=== PATIENT | male | born 1970 | race Caucasian/White ===

== ENCOUNTER 2020-12-18 09:02 | Outpatient (REF) | payer BC, SELFPAY ==
[2020-12-18 11:30] LABS: Estimated Average Glucose 174 mg/dL; Hemoglobin A1c % 7.7 %
[2020-12-18 12:02] LABS: Alanine Aminotransferase 43 U/L (0-40); Albumin Level 4.6 g/dL (3.5-5.0); Alkaline Phosphatase 70 U/L (39-117); Anion Gap 15 (12-20); Aspartate Amino Transferase 17 U/L (5-37); Bilirubin Total 0.8 mg/dL (0.0-1.0); Blood Urea Nitrogen 17 mg/dL (9-16); Calcium 9.2 mg/dL (8.4-10.2); Carbon Dioxide 28 mmol/L (22-29); Chloride 95 mmol/L (96-108); Estimated Glomerular Filt Rate > 60; Glucose Fasting 197 mg/dL (60-99); Potassium 4.8 mmol/L (3.3-5.1); Sodium 133 mmol/L (135-145); Total Protein 7.4 g/dL (6.5-8.0)
== END 2020-12-18 09:03 | disposition home or self-care (01) ==
LOC: HO.MANLDS 09:02
PROVIDERS: PCP Internal Medicine; Visit Provider Internal Medicine
DX: E11.65 Type 2 diabetes mellitus with hyperglycemia (principal)
CPT/HCPCS: 36415; 80053; 83036

== ENCOUNTER 2021-05-04 07:52 | Outpatient (REF) | payer BC, SELFPAY ==
[2021-05-04 11:34] LABS: Estimated Average Glucose 169 mg/dL; Hemoglobin A1c % 7.5 %
== END 2021-05-04 07:53 | disposition home or self-care (01) ==
LOC: HO.MANLDS 07:52
PROVIDERS: PCP Internal Medicine; Visit Provider Internal Medicine
DX: E11.65 Type 2 diabetes mellitus with hyperglycemia (principal)
CPT/HCPCS: 36415; 83036

== ENCOUNTER 2021-08-10 08:00 | Outpatient (REF) | payer BC, SELFPAY ==
[2021-08-10 11:29] LABS: Estimated Average Glucose 174 mg/dL; Hemoglobin A1c % 7.7 %
== END 2021-08-10 08:01 | disposition home or self-care (01) ==
LOC: HO.MANLDS 08:00
PROVIDERS: PCP Internal Medicine; Visit Provider Internal Medicine
DX: E11.65 Type 2 diabetes mellitus with hyperglycemia (principal)
CPT/HCPCS: 36415; 83036

== ENCOUNTER 2021-12-03 08:20 | Outpatient (REF) | payer BC, SELFPAY ==
[2021-12-03 11:25] LABS: Alanine Aminotransferase 62 U/L (0-40); Albumin Level 4.3 g/dL (3.5-5.0); Alkaline Phosphatase 80 U/L (39-117); Anion Gap 11 (12-20); Aspartate Amino Transferase 27 U/L (5-37); Bilirubin Total 0.6 mg/dL (0.0-1.0); Blood Urea Nitrogen 12 mg/dL (9-16); Calcium 9.6 mg/dL (8.4-10.2); Carbon Dioxide 31 mmol/L (22-29); Chloride 98 mmol/L (96-108); Cholesterol 168 mg/dL; Estimated Glomerular Filt Rate > 60; Glucose Fasting 254 mg/dL (60-99); HDL Cholesterol 37 mg/dL; LDL Cholesterol Calculated 103 mg/dl; Potassium 4.8 mmol/L (3.3-5.1); Sodium 135 mmol/L (135-145); Total Protein 7.1 g/dL (6.5-8.0); Triglycerides 140 mg/dL
[2021-12-03 11:33] LABS: Estimated Average Glucose 194 mg/dL; Hemoglobin A1c % 8.4 %
[2021-12-03 11:46] LABS: Creatinine Urine 92.07 mg/dL; Microalbum/Creatinine Ratio Ur 10.8 ug/mg cr
[2021-12-03 11:59] LABS: Prostate Specific Antigen 0.27 ng/mL (<0.05-4.0)
== END 2021-12-03 08:21 | disposition home or self-care (01) ==
LOC: HO.MANLDS 08:20
PROVIDERS: PCP Internal Medicine; Visit Provider Internal Medicine
DX: E11.65 Type 2 diabetes mellitus with hyperglycemia (principal); Z12.5 Encounter for screening for malignant neoplasm of prostate
CPT/HCPCS: 36415; 80053; 80061; 82043; 83036; 84153

== ENCOUNTER 2022-02-22 09:34 | Outpatient (REF) | payer BC, SELFPAY ==
[2022-02-22 11:23] LABS: Estimated Average Glucose 217 mg/dL; Hemoglobin A1c % 9.2 %
== END 2022-02-22 09:35 | disposition home or self-care (01) ==
LOC: HO.MANLDS 09:34
PROVIDERS: PCP Internal Medicine; Visit Provider Internal Medicine
DX: E11.65 Type 2 diabetes mellitus with hyperglycemia (principal)
CPT/HCPCS: 36415; 83036

== ENCOUNTER 2023-02-04 09:50 | Outpatient (REF) | payer BC, SELFPAY ==
[2023-02-04 11:41] LABS: Estimated Average Glucose 197 mg/dL; Hemoglobin A1c % 8.5 %
[2023-02-04 12:32] LABS: Creatinine Urine 82.64 mg/dL; Microalbum/Creatinine Ratio Ur 20.5 ug/mg cr
[2023-02-04 12:33] LABS: Alanine Aminotransferase 51 U/L (0-40); Albumin Level 4.4 g/dL (3.5-5.0); Alkaline Phosphatase 76 U/L (39-117); Anion Gap 11 (12-20); Aspartate Amino Transferase 26 U/L (5-37); Bilirubin Total 0.7 mg/dL (0.0-1.0); Blood Urea Nitrogen 12 mg/dL (9-16); Calcium 9.6 mg/dL (8.4-10.2); Carbon Dioxide 32 mmol/L (22-29); Chloride 100 mmol/L (96-108); Cholesterol 162 mg/dL; Estimated Glomerular Filt Rate > 60; Glucose Random 194 mg/dL (60-115); HDL Cholesterol 38 mg/dL; LDL Cholesterol Calculated 98 mg/dl; Potassium 5.2 mmol/L (3.3-5.1); Sodium 138 mmol/L (135-145); Triglycerides 132 mg/dL
== END 2023-02-04 09:51 | disposition home or self-care (01) ==
LOC: HO.MANLDS 09:50
PROVIDERS: Visit Provider Internal Medicine
DX: E11.65 Type 2 diabetes mellitus with hyperglycemia (principal)
CPT/HCPCS: 36415; 80053; 80061; 82043; 83036

== ENCOUNTER 2023-05-28 08:44 | Outpatient (REF) | payer BC, SELFPAY ==
[2023-05-28 14:00] LABS: Alanine Aminotransferase 58 U/L (0-40); Albumin Level 4.3 g/dL (3.5-5.0); Alkaline Phosphatase 73 U/L (39-117); Anion Gap 14 (12-20); Aspartate Amino Transferase 33 U/L (5-37); Bilirubin Total 0.7 mg/dL (0.0-1.0); Blood Urea Nitrogen 13 mg/dL (9-16); Calcium 9.5 mg/dL (8.4-10.2); Carbon Dioxide 27 mmol/L (22-29); Chloride 101 mmol/L (96-108); Cholesterol 156 mg/dL (<200); Estimated Glomerular Filt Rate > 60; Glucose Random 255 mg/dL (60-115); HDL Cholesterol 37 mg/dL (>40); LDL Cholesterol Calculated 91 mg/dL (<100); Potassium 4.7 mmol/L (3.3-5.1); Sodium 137 mmol/L (135-145); Total Protein 7.2 g/dL (6.5-8.0); Triglycerides 141 mg/dL (<150)
[2023-05-28 14:16] LABS: Estimated Average Glucose 200 mg/dL; Hemoglobin A1c % 8.6 % (<6.0)
== END 2023-05-28 08:45 | disposition home or self-care (01) ==
LOC: HO.MANLDS 08:44
PROVIDERS: Visit Provider Internal Medicine
DX: E11.65 Type 2 diabetes mellitus with hyperglycemia (principal)
CPT/HCPCS: 36415; 80053; 80061; 83036

== ENCOUNTER 2023-09-05 08:05 | Outpatient (REF) | payer BC, SELFPAY ==
[2023-09-05 14:32] LABS: Alanine Aminotransferase 43 U/L (0-40); Albumin Level 4.2 g/dL (3.5-5.0); Alkaline Phosphatase 75 U/L (39-117); Anion Gap 13 (12-20); Aspartate Amino Transferase 29 U/L (5-37); Bilirubin Total 0.6 mg/dL (0.0-1.0); Blood Urea Nitrogen 13 mg/dL (9-16); Calcium 9.4 mg/dL (8.4-10.2); Carbon Dioxide 28 mmol/L (22-29); Chloride 101 mmol/L (96-108); Cholesterol 169 mg/dL (<200); Estimated Glomerular Filt Rate > 60; Glucose Random 210 mg/dL (60-115); HDL Cholesterol 35 mg/dL (>40); LDL Cholesterol Calculated 98 mg/dL (<100); Potassium 4.4 mmol/L (3.3-5.1); Sodium 138 mmol/L (135-145); Total Protein 7.3 g/dL (6.5-8.0); Triglycerides 183 mg/dL (<150)
[2023-09-05 14:38] LABS: Estimated Average Glucose 200 mg/dL; Hemoglobin A1c % 8.6 % (<6.0)
[2023-09-05 14:45] LABS: Creatinine Urine 36.38 mg/dL; Microalbumin Urine < 5.0 mg/L
== END 2023-09-05 08:06 | disposition home or self-care (01) ==
LOC: HO.MANLDS 08:05
PROVIDERS: Visit Provider Internal Medicine
DX: E11.65 Type 2 diabetes mellitus with hyperglycemia (principal)
CPT/HCPCS: 36415; 80053; 80061; 82043; 82570; 83036

== ENCOUNTER 2023-10-31 07:48 | Outpatient (REF) | payer BC, SELFPAY ==
[2023-10-31 13:36] LABS: Estimated Average Glucose 174 mg/dL; Hemoglobin A1c % 7.7 % (<6.0)
== END 2023-10-31 07:49 | disposition home or self-care (01) ==
LOC: HO.MANLDS 07:48
PROVIDERS: Visit Provider Internal Medicine
DX: E11.65 Type 2 diabetes mellitus with hyperglycemia (principal)
CPT/HCPCS: 36415; 83036

== ENCOUNTER 2024-03-22 09:07 | Outpatient (REF) | payer BC, SELFPAY ==
[2024-03-22 13:52] LABS: Estimated Average Glucose 171 mg/dL; Hemoglobin A1c % 7.6 % (<6.0)
[2024-03-22 14:06] LABS: Alanine Aminotransferase 20 U/L (0-40); Albumin Level 4.2 g/dL (3.5-5.0); Alkaline Phosphatase 76 U/L (39-117); Anion Gap 16 (12-20); Aspartate Amino Transferase 15 U/L (5-37); Bilirubin Total 0.5 mg/dL (0.0-1.0); Blood Urea Nitrogen 17 mg/dL (9-16); Carbon Dioxide 25 mmol/L (22-29); Chloride 101 mmol/L (96-108); Estimated Glomerular Filt Rate > 60; Glucose Random 169 mg/dL (60-115); Potassium 4.6 mmol/L (3.3-5.1); Sodium 137 mmol/L (135-145); Total Protein 7.1 g/dL (6.5-8.0)
== END 2024-03-22 09:08 | disposition home or self-care (01) ==
LOC: HO.MANLDS 09:07
PROVIDERS: Visit Provider Internal Medicine
DX: E11.65 Type 2 diabetes mellitus with hyperglycemia (principal)
CPT/HCPCS: 36415; 80053; 83036

== ENCOUNTER 2024-08-31 13:44 | Outpatient (REF) | payer BC, SELFPAY ==
[2024-08-31 15:32] LABS: Albumin Level 4.4 g/dL (3.5-5.0); Anion Gap 17 (12-20); Aspartate Amino Transferase 54 U/L (5-37); Bilirubin Total 0.3 mg/dL (0.0-1.0); Blood Urea Nitrogen 12 mg/dL (9-16); Calcium 9.7 mg/dL (8.4-10.2); Carbon Dioxide 25 mmol/L (22-29); Chloride 96 mmol/L (96-108); Estimated Glomerular Filt Rate > 60; Glucose Random 152 mg/dL (60-115); Potassium 4.1 mmol/L (3.3-5.1); Sodium 134 mmol/L (135-145); Total Protein 7.8 g/dL (6.5-8.0)
[2024-08-31 15:41] LABS: Estimated Average Glucose 183 mg/dL; Hemoglobin A1C 243.5774 umol/L
[2024-08-31 16:08] LABS: Alanine Aminotransferase 41 U/L (0-40); Alkaline Phosphatase 127 U/L (39-117)
== END 2024-08-31 13:45 | disposition home or self-care (01) ==
LOC: HO.MANLNP 13:44
PROVIDERS: Visit Provider Internal Medicine
DX: E11.65 Type 2 diabetes mellitus with hyperglycemia (principal)
CPT/HCPCS: 36415; 80053; 83036

== ENCOUNTER 2024-12-24 07:37 | Outpatient (REF) | payer BC, SELFPAY ==
[2024-12-24 13:49] LABS: Estimated Average Glucose 189 mg/dL; Hemoglobin A1c % 8.2 % (<6.0)
[2024-12-24 14:10] LABS: Alanine Aminotransferase 55 U/L (0-40); Albumin Level 4.2 g/dL (3.5-5.0); Alkaline Phosphatase 81 U/L (39-117); Anion Gap 13 (12-20); Bilirubin Total 0.4 mg/dL (0.0-1.0); Blood Urea Nitrogen 14 mg/dL (9-16); Calcium 9.7 mg/dL (8.4-10.2); Carbon Dioxide 26 mmol/L (22-29); Chloride 103 mmol/L (96-108); Cholesterol 163 mg/dL (<200); Estimated Glomerular Filt Rate > 60; Glucose Random 208 mg/dL (60-115); HDL Cholesterol 37 mg/dL (>40); LDL Cholesterol Calculated 80 mg/dL (<100); Potassium 4.7 mmol/L (3.3-5.1); Sodium 137 mmol/L (135-145); Total Protein 7.6 g/dL (6.5-8.0); Triglycerides 233 mg/dL (<150)
[2024-12-24 14:22] LABS: Aspartate Amino Transferase 31 U/L (5-37)
[2024-12-27 04:19] LABS: HBS Num1 22.32 mIU/mL (0-7.99); ~Hepatitis B Surface Antibody REACTIVE (Nonreactive)
[2024-12-28 02:34] LABS: Mumps Virus IgG Antibody <9.00 AU/mL; Rubella IgG Antibody 1.28 Index
== END 2024-12-24 07:38 | disposition home or self-care (01) ==
LOC: HO.MANLDS 07:37
PROVIDERS: Visit Provider Internal Medicine
DX: Z91.89 Other specified personal risk factors, not elsewhere classified (principal); E11.65 Type 2 diabetes mellitus with hyperglycemia
CPT/HCPCS: 36415; 80053; 80061; 83036; 86706; 86735; 86762; 86765

== ENCOUNTER 2025-07-27 09:46 | Outpatient (REF) | payer BC, SELFPAY ==
--- OUTSIDE RECORDS SUMMARY | 2024-12-27 05:00 | XMS_ITS ---
Author Organization [facility] Address [address] [place] [address] Care Team Providers Care Director Client Name Role Phone Freddy MARTINEZ, Robinson Primary Care Provider UnavailGurvinder James Unavailable [phone] Encounters Encounter Location Date Provider Diagnosis [address] [id number] 12/27/2024 Gurvinder Beyer Plan Of Treatment Next Appt Details Provider Name:Gurvinder Beyer , 12/12/2025 08:30:00 AM, [facility] [address], [id number], Progress Notes * Tj CARTAGENA MDOB:1970 (54 yo M)Acc No.[id number]:12/27/2024 Progress Note Patient: Tj DEL TORO Provider: Rufus Beyer DPM :1970 A ge:54 Y S ex:Male Date:12/27/2024 Address:[address] [place] [id number] Pcp:Robinson Hayes MD Subjective: * Chief Complaints: * * Medical History: Objective: * Vitals: Assessment: Plan: * Treatment: * Images: * The named appointment provid er may or may not be the originator of this progress note, and it is not deemed complete until electronically signed by the appointment provider. Sign off status: Pending * Provider: Rufus Beyer DPM Date: 0 12/27/2024 Generated for Printi joan/Lety/eTransmitting on: 1 11:31 AM EDT
--- OUTSIDE RECORDS SUMMARY | 2025-07-27 11:31 | XMS_ITS | Encounter Summary ---
Author Organization [facility] Address [address] [place], [place] [id number] Phone Care Team Providers Care Oxyacetylene Torch Operator Name Role Phone Robinson Hayes DO Primary Care Provider [phone] Reason for Referral * MRI/CAT Scan - Closed Specialty Diagnoses / Procedures Referred By Braden bañuelos Referred To Contact Radiology Diagnoses Other specified diabetes mellitus with foot ulcer, unspecified whether manager long term care insulin use Procedures MRI Toe (Right) Robinson Hayes DO Phone: tel: fax: [email or web address] Referral ID Status Reason Start Date Expiration Date Visits Re quested Visits Authorized [id number] Closed 01/06/2020 01/05/2021 1 1 Encounter Details Date Type Department Care Team (Late st Contact Info) Description 01/06/2020 Transcribe Orders Virtual Department [address] [place] [address] Robinson Hayes DO [address] [facility] [place] [address] [email or web address] Other specified diabetes mellitus with foot ulcer, unspecified whether [facility] insulin use (Primary Dx) Social History Tobacco Use Types Packs/Day Years Used Date Smoking Tobacco: Never Assessed Sex and Gender Information Value Date Recorded Sex Assigned at Not on file Legal Sex Male 9:34 PM EDT Gender Identity Not on file Sexual Orientation Not on file documented as of this encounter Plan of Treatment Not on file documented as of this encounter Results * XR FOOT 3 OR MORE VIEWS (RIGHT) (01/12/2020 4:04 PM EDT) Anatomical Region Laterality Modality Foot Right Radiographic Sandra ging 01/12/2020 4:10 PM EDT Impressions 01/12/2020 4:16 PM EDT Although findings on MRI are compatible with osteomyelitis involving the distal phalanx of the first digit in the correct clinical setting, there is no radiographic evidence of osteomyelitis. Clinical follow-up recommended. Approximate 1 cm lesion within the base of the middle phalanx of the first digit is very likely benign and probably a cyst. POS - [id number] Narrative 01/12/2020 4:16 PM EDT HISTORY: Pain, swelling and deep ulcer involving the first toe. COMPARISON: MRI right foot 01/12/2020. VIEWS: 3 views. FINDINGS: Evidence of a soft tissue ulcer at the plantar aspect of the first digit. No evidence of periosteal reactions or cortical erosions. No fractures, subluxations or dislocations. Minimal spurring at the DIP and PIP joints of the first digit. There is an approximate 1 cm faint lucent lesion with a thin sclerotic rim within the base of the middle phalanx of the first digit correlating with the T2 hyperintense, T1 hypointense lesion on MRI. No endosteal scalloping. Procedure Note Dwayne Honeycutt MD - 01/12/2020 HISTORY: Pain, swelling and deep ulcer involving the first toe. COMPARISON: MRI right foot 01/12/2020. VIEWS: 3 views. FINDINGS: Evidence of a soft tissue ulcer at the plantar aspect of the firstdigit. No evidence of periosteal reactions or cortical erosions. No fractures,subluxations or dislocations. Minimal spurring at the DIP and PIP jointsof the first digit. There is an approximate 1 cm faint lucent lesion with a thin sclerotic rimwithin the base of the middle phalanx of the first digit correlating withthe T2 hyperintense, T1 hypointense lesion on MRI. No endostealscalloping. IMPRESSION: Although findings on MRI are compatible with osteomyelitis involving thedistal phalanx of the first digit in the correct clinical setting, thereis no radiographic evidence of osteomyelitis. Clinical follow-uprecommended. Approximate 1 cm lesion within the base of the middle phalanxof the first digit is very likely benign and probably a cyst. POS - [id number] us Robinson Logan Hayes DO IMG XR LOWER EXTREMITY Final Res ult * MRI TOE WITH AND WITHOUT CONTRAST (RIGHT) (01/12/2020 3:45 PM EDT) Anatomical Region Laterality Modality Foot Right Magnetic Resonan ce 01/12/2020 3:47 PM EDT Impressions 01/12/2020 4:10 PM EDT Findings compatible with osteomyelitis of the distal phalanx of the first digit in the correct clinical setting. Clinical follow-up recommended. 9 mm lesion with benign characteristics in the base of the proximal phalanx of the first digit which could be a cyst. Correlation with plain radiographs recommended. POS [id number] Narrative 01/12/2020 4:10 PM EDT HISTORY: Pain, swelling, deep ulcer at the first toe of right foot, evaluate for osteoarthritis. COMPARISON: None. TECHNIQUE: Study performed according to osteomyelitis protocol on a 1.5 Cindy magnet. FINDINGS: Diffuse edema and enhancement within the soft tissues of the first toe surrounding the distal phalanx. No evidence of abscess. Diffuse edema within the distal phalanx of the first digit. There is evidence of diffuse enhancement within the distal phalanx, as well. No other suspicious areas of edema or enhancement within the bones. 9 mm well-circumscribed T2 hyperintense, T1 hypointense signal abnormality within the base of the middle phalanx of the first digit, possibly a cyst. Small amount of T2 hyperintense change within the head of the middle phalanx at the DIP joint may be degenerative. Procedure Note Dwayne Honeycutt MD - 01/12/2020 HISTORY: Pain, swelling, deep ulcer at the first toe of right foot,evaluate for osteoarthritis. COMPARISON: None. TECHNIQUE: Study performed according to osteomyelitis protocol on a 1.5Tesla magnet. FINDINGS: Diffuse edema and enhancement within the soft tissues of the first toesurrounding the distal phalanx. No evidence of abscess. Diffuse edema within the distal phalanx of the first digit. There isevidence of diffuse enhancement within the distal phalanx, as well. Noother suspicious areas of edema or enhancement within the bones. 9 mm well-circumscribed T2 hyperintense, T1 hypointense signal abnormalitywithin the base of the middle phalanx of the first digit, possibly a cyst.Small amount of T2 hyperintense change within the head of the middlephalanx at the DIP joint may be degenerative. IMPRESSION: Findings compatible with osteomyelitis of the distal phalanx of the firstdigit in the correct clinical setting. Clinical follow-up recommended. 9mm lesion with benign characteristics in the base of the proximal phalanxof the first digit which could be a cyst. Correlation with plain radiographs recommended. POS [id number] us Robinson Hayes DO IMG MR EXTREMITY Final Result documented in this encounter Visit Diagnoses Diagnosis Other specified diabetes mellitus with foot ulcer, unspecified whether manager long term care insulin use- Primary Other specified diabetes mellitus with foot ulcer, unspecified whether manager long term care insulin use Other specified diabetes mellitus with foot ulcer, unspecified whether [facility] insulin use documented in this encounter Care Teams Oxyacetylene Torch Operator Relationship Specialty Start Date End Date Robinson Hayes DO [email or web address] PCP - General Internal Medicine 01/10/20 documented as of this encounter Additional Source Comments The information contained in this document represents components of the legal health record. It is not the complete legal health record.[facility]
--- OUTSIDE RECORDS SUMMARY | 2025-07-27 11:31 | XMS_ITS | Encounter Summary ---
Author Organization [facility] Address [address] [place] [address] Phone Care Team Providers Care Manager Retail Name Role Phone Robinson Hayes DO Primary Care Provider [phone] Encounter Details Date Type Department Care Team (Late st Contact Info) Description 07/31/2020 Transcribe Orders Virtual Department [address] [place] [address] Robinson Hayes DO [address] [facility] [place] [address] [place] [address] Right-sided low back pain with right-sided sciatica, unspecified chronicity (Primary Dx) Social History Tobacco Use Types Packs/Day Years Used Date Smoking Tobacco: Never Assessed Sex and Gender Information Value Date Recorded Sex Assigned at Not on file Legal Sex Male 9:34 PM EDT Gender Identity Not on file Sexual Orientation Not on file documented as of this encounter Plan of Treatment Not on file documented as of this encounter Results * XR LUMBOSACRAL SPINE 4 OR MORE VIEWS (10/20/2020 12:08 PM EST) Anatomical Region Laterality Modality L-spine Computed Radiogr aphy 10/20/2020 12:1 6 PM EST Narrative 10/20/2020 12:25 PM EST TECHNIQUE: XR LUMBOSACRAL SPINE 4 OR MORE VIEWS CLINICAL HISTORY: Sciatic pain. Lower back pain. FINDINGS: There are 5 lumbar type non-rib bearing lumbar vertebrae. There is a suggestion of minimal biconvex thoracolumbar scoliosis, note is made of anterior vertebral endplate osteophytes at T11-T12 through L5-S1 disc space levels. There are mild sclerotic changes of the inferior aspect of left SI joint, likely of reactive-degenerative origin. There are no lumbar vertebral body compression fracture deformities. T11-T12 and T12-L1 intervertebral disc spaces demonstrate moderate loss of height There is minimal L2 on L3, L3 and L4 on L5 vertebral body retrolisthesis. Mild facet arthropathy seen L4-5 level without neural foraminal narrowing. L5-S1 intervertebral disc demonstrates moderate loss of height and there are small anterior and posterior vertebral endplate osteophytes. Moderate facet arthropathy is seen at L5-S1 level with mild neural foraminal narrowing. No definite evidence of lumbar spondylolysis. CONCLUSION: Mild biconvex thoracolumbar scoliosis and minimal L2 on L3-L4 on L5 vertebral body retrolisthesis. Moderate L5-S1 disc space loss of height and facet arthropathy with mild neural foraminal narrowing. No evidence of lumbar vertebral body compression fractures. Procedure Note Mheul Peters MD - 10/20/2020 TECHNIQUE: XR LUMBOSACRAL SPINE 4 OR MORE VIEWS CLINICAL HISTORY: Sciatic pain. Lower back pain. FINDINGS: There are 5 lumbar type non-rib bearing lumbar vertebrae. There is a suggestion of minimal biconvex thoracolumbar scoliosis, note ismade of anterior vertebral endplate osteophytes at T11-T12 through L5-S1disc space levels. There are mild sclerotic changes of the inferior aspect of left SI joint,likely of reactive-degenerative origin. There are no lumbar vertebral body compression fracture deformities. T11-T12 and T12-L1 intervertebral disc spaces demonstrate moderate loss ofheight There is minimal L2 on L3, L3 and L4 on L5 vertebral bodyretrolisthesis. Mild facet arthropathy seen L4-5 level without neural foraminalnarrowing. L5-S1 intervertebral disc demonstrates moderate loss of height and thereare small anterior and posterior vertebral endplate osteophytes. Moderatefacet arthropathy is seen at L5-S1 level with mild neural foraminalnarrowing. No definite evidence of lumbar spondylolysis. CONCLUSION: Mild biconvex thoracolumbar scoliosis and minimal L2 on L3-L4 on [id number] body retrolisthesis. Moderate L5-S1 disc space loss of height and facet arthropathy with mildneural foraminal narrowing. No evidence of lumbar vertebral body compression fractures. us Robinson Hayes IMG XR SPINE Final Result documented in this encounter Visit Diagnoses Diagnosis Right-sided low back pain with right-sided sciatica, unspecified chronicity- Primary Right-sided low back pain with right-sided sciatica, unspecified chronicity documented in this encounter Care Teams Manager Retail Relationship Specialty Start Date End Date Robinson Hayes DO [email or web address] PCP - General Internal Medicine 01/10/20 documented as of this encounter Additional Source Comments The information contained in this document represents components of the legal health record. It is not the complete legal health record.[facility]
--- OUTSIDE RECORDS SUMMARY | 2025-07-27 11:31 | XMS_ITS | Encounter Summary ---
Author Organization [facility] Address [address] [place] [id number] Phone Care Team Providers Care Director Of Vocational Training Name Role Phone Robinson Hayes DO Primary Care Provider [phone] Encounter Details Date Type Department Care Team (Late st Contact Info) Description 01/06/2020 Procedure Pass [address] [address] Social History Tobacco Use Types Packs/Day Years Used Date Smoking Tobacco: Never Assessed Sex and Gender Information Value Date Recorded Sex Assigned at Not on file Legal Sex Male 9:34 PM EDT Gender Identity Not on file Sexual Orientation Not on file documented as of this encounter Plan of Treatment Not on file documented as of this encounter Visit Diagnoses Not on filedocumented in this encounter Care Teams Director Of Vocational Training Relationship Specialty Start Date End Date Robinson Hayes DO [email or web address] PCP - General Internal Medicine 01/10/20 documented as of this encounter Additional Source Comments The information contained in this document represents components of the legal health record. It is not the complete legal health record.[facility]
--- OUTSIDE RECORDS SUMMARY | 2025-07-27 11:31 | XMS_ITS | Encounter Summary ---
Author Organization [facility] Address [address] [address] Phone Care Team Providers Care Crop Supervisor Name Role Phone Robinson Hayes DO Primary Care Provider [phone] Encounter Details Date Type Department Care Team (Late st Contact Info) Description 10/25/2020 Procedure Pass [address] [place] [address] Social History Tobacco Use Types Packs/Day Years Used Date Smoking Tobacco: Never Assessed Sex and Gender Information Value Date Recorded Sex Assigned at Not on file Legal Sex Male 9:34 PM EDT Gender Identity Not on file Sexual Orientation Not on file documented as of this encounter Last Filed Vital Signs Vital Sign Reading Time Taken Comments Blood Pressure - - Pulse - - Temperature - - Respiratory Rate - - Oxygen Saturation - - Inhaled Oxygen Concentration - - Weight 108.9 kg (240 lb) 10/26/2020 4:35 PM EST Height 185.4 cm (6' 1 ) 10/26/2020 4:35 PM EST Body Mass Index 31.66 10/26/2020 4:35 PM EST documented in this encounter Plan of Treatment Not on file documented as of this encounter Visit Diagnoses Not on filedocumented in this encounter Care Teams Crop Supervisor Relationship Specialty Start Date End Date Robinson Hayes DO PCP - General Internal Medicine 01/10/20 documented as of this encounter Additional Source Comments The information contained in this document represents components of the legal health record. It is not the complete legal health record.[facility]
--- OUTSIDE RECORDS SUMMARY | 2025-07-27 11:32 | XMS_ITS | Encounter Summary ---
Author Organization [facility] Address [address] [place] [address] Phone Care Team Providers Care Fine Arts Instructor Name Role Phone Robinson Hayes DO Primary Care Provider [phone] Reason for Referral * MRI/CAT Scan - Closed Specialty Diagnoses / Procedures Referred By Braden bañuelos Referred To Contact Radiology Diagnoses Weakness of right leg 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, unspecified etiology Procedures MRI Lumbar Spine Robinson Hayes DO Phone: tel: fax: [email or web address] Referral ID Status Reason Start Date Expiration Date Visits Re quested Visits Authorized [id number] Closed 10/25/2020 10/25/2021 1 1 Encounter Details Date Type Department Care Team (Late st Contact Info) Description 10/25/2020 Transcribe Orders Virtual Department [address] [place] [address] Robinson Hayes DO [address] [facility] [place] [address] [email or web address] Weakness of right leg (Primary Dx); 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, unspecified etiology Social History Tobacco Use Types Packs/Day Years Used Date Smoking Tobacco: Never Assessed Sex and Gender Information Value Date Recorded Sex Assigned at Not on file Legal Sex Male 9:34 PM EDT Gender Identity Not on file Sexual Orientation Not on file documented as of this encounter Plan of Treatment Not on file documented as of this encounter Results * MRI LUMBAR SPINE (BONE) WITHOUT CONTRAST (10/28/2020 9:53 AM EST) Anatomical Region Laterality Modality L-spine Magnetic Resonan ce 10/28/2020 2:37 PM EST Impressions 10/28/2020 2:44 PM EST 1.Moderate size L5-S1 right paracentral disc extrusion compressing the right S1 nerve root. No canal or neural foraminal stenosis. 2.Mild multilevel degenerative changes as outlined above. Narrative 10/28/2020 2:44 PM EST COMPARISON: Lumbar spine x-rays 10/20/2020. TECHNIQUE: Exam performed on a 1.5 Cindy high-field MRI scanner. Sagittal T1, T2 and STIR, axial T1 and T2 sequences were obtained. MRI LUMBAR SPINE FINDINGS: Severe L5-S1 disc space narrowing and endplate osteophytes. Moderate T11-12 and T12-L1 disc space narrowing with endplate Schmorl's nodes and endplate spurring. No malalignment. No compression fractures. No destructive or suspicious bone lesions. Conus terminates at T12-L1. Paraspinal soft tissues are normal. Additional findings: Incidental left aortic left renal vein. No incidental findings of concern. T11-12: Small left paracentral disc protrusion and mild facet arthropathy. L1-L2: Mild facet arthropathy. L2-L3: Mild facet arthropathy. L3-L4: Mild facet arthropathy. L4-L5: Mild facet arthropathy. L5-S1: Moderate size right paracentral disc extrusion compressing the right S1 nerve root in the canal. Procedure Note Sal Martinez MD - 10/28/2020 COMPARISON: Lumbar spine x-rays 10/20/2020. TECHNIQUE: Exam performed on a 1.5 Cindy high-field MRI scanner. SagittalT1, T2 and STIR, axial T1 and T2 sequences were obtained. MRI LUMBAR SPINE FINDINGS: Severe L5-S1 disc space narrowing and endplate osteophytes. [id number] and T12-L1 disc space narrowing with endplate Schmorl's nodes andendplate spurring. No malalignment. No compression fractures. Nodestructive or suspicious bone lesions. Conus terminates at T12-L1.Paraspinal soft tissues are normal. Additional findings: Incidental left aortic left renal vein. Noincidental findings of concern. T11-12: Small left paracentral disc protrusion and mild facetarthropathy. L1-L2: Mild facet arthropathy. L2-L3: Mild facet arthropathy. L3-L4: Mild facet arthropathy. L4-L5: Mild facet arthropathy. L5-S1: Moderate size right paracentral disc extrusion compressing theright S1 nerve root in the canal. IMPRESSION: 1.Moderate size L5-S1 right paracentral disc extrusion compressing theright S1 nerve root. No canal or neural foraminal stenosis. 2.Mild multilevel degenerative changes as outlined above. us Robinson Hayes DO IMG MR XSPECIALTY Final Result documented in this encounter Visit Diagnoses Diagnosis Weakness of right leg- Primary Muscle weakness (generalized) 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, unspecified etiology Weakness of right leg Muscle weakness (generalized) 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, unspecified etiology documented in this encounter Care Teams Fine Arts Instructor Relationship Specialty Start Date End Date Robinson Hayes DO [email or web address] PCP - General Internal Medicine 01/10/20 documented as of this encounter Additional Source Comments The information contained in this document represents components of the legal health record. It is not the complete legal health record.[facility]
--- OUTSIDE RECORDS SUMMARY | 2025-07-27 11:32 | XMS_ITS | Data Portability ---
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) MDM MODERATE MUST MEET 2 OUT OF 3 ELEMENTS: PROBLEMS, DATA OR RISK ELEMENT 1: PROBLEMS ADDRESSED 1 OR MORE CHRONIC ILLNESS WITH EXACERBATION OR 2 OR MORE STABLE CHRONIC ILLNESSES OR 1 UNDIAGNOSED NEW PROBLEM OR 1 ACUTE ILLNESS W/SYMPTOMS OR 1 ACUTE COMPLICATED INJURY ELEMENT 2: DATA MUST MEET 1 OF 3 CATEGORIES CATEGORY 1: REVIEW OF PRIOR EXTERNAL NOTES, REVIEW OF RESULTS, ORDERING OF EACH TEST, ASSESSMENT REQUIRING INDEPENDENT HISTORIAN OR CATEGORY 2: INDEPENDENT INTERPRETATION OF TESTS BY ANOTHER PHYSICIAN OR SPECIALIST OR CATEGORY 3: DISCUSSION OF MGT OR TEST INTERPRETATION W/EXTERNAL PHYSICIAN OR SPECIALIST ELEMENT 3: RISK RISK OF COMPLICATIONS AND/OR MORBIDITY OR MORTALITY OF PATIENT MANAGEMENT PROVIDER MUST THOROUGHLY DOCUMENT EACH ELEMENT THAT IS COVERED Not available 11/03/2023 12:02:39 03/22/2024 03/22/2024 [address] [place] [address] (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) MDM MODERATE MUST MEET 2 OUT OF 3 ELEMENTS: PROBLEMS, DATA OR RISK ELEMENT 1: PROBLEMS ADDRESSED 1 OR MORE CHRONIC ILLNESS WITH EXACERBATION OR 2 OR MORE STABLE CHRONIC ILLNESSES OR 1 UNDIAGNOSED NEW PROBLEM OR 1 ACUTE ILLNESS W/SYMPTOMS OR 1 ACUTE COMPLICATED INJURY ELEMENT 2: DATA MUST MEET 1 OF 3 CATEGORIES CATEGORY 1: REVIEW OF PRIOR EXTERNAL NOTES, REVIEW OF RESULTS, ORDERING OF EACH TEST, ASSESSMENT REQUIRING INDEPENDENT HISTORIAN OR CATEGORY 2: INDEPENDENT INTERPRETATION OF TESTS BY ANOTHER PHYSICIAN OR SPECIALIST OR CATEGORY 3: DISCUSSION OF MGT OR TEST INTERPRETATION W/EXTERNAL PHYSICIAN OR SPECIALIST ELEMENT 3: RISK RISK OF COMPLICATIONS AND/OR MORBIDITY OR MORTALITY OF PATIENT MANAGEMENT PROVIDER MUST THOROUGHLY DOCUMENT EACH ELEMENT THAT IS COVERED Not available 03/22/2024 14:34:37 09/06/2024 09/06/2024 [id number] [place] [address] (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) [facility] MODERATE MUST MEET 2 OUT OF 3 ELEMENTS: PROBLEMS, DATA OR RISK ELEMENT 1: PROBLEMS ADDRESSED 1 OR MORE CHRONIC ILLNESS WITH EXACERBATION OR 2 OR MORE STABLE CHRONIC ILLNESSES OR 1 UNDIAGNOSED NEW PROBLEM OR 1 ACUTE ILLNESS W/SYMPTOMS OR 1 ACUTE COMPLICATED INJURY ELEMENT 2: DATA MUST MEET 1 OF 3 CATEGORIES CATEGORY 1: REVIEW OF PRIOR EXTERNAL NOTES, REVIEW OF RESULTS, ORDERING OF EACH TEST, ASSESSMENT REQUIRING INDEPENDENT HISTORIAN OR CATEGORY 2: INDEPENDENT INTERPRETATION OF TESTS BY ANOTHER PHYSICIAN OR SPECIALIST OR CATEGORY 3: DISCUSSION OF MGT OR TEST INTERPRETATION W/EXTERNAL PHYSICIAN OR SPECIALIST ELEMENT 3: RISK RISK OF COMPLICATIONS AND/OR MORBIDITY OR MORTALITY OF PATIENT MANAGEMENT PROVIDER MUST THOROUGHLY DOCUMENT EACH ELEMENT THAT IS COVERED Not available 09/06/2024 15:29:53 12/27/2024 12/27/2024 [id number] [place] [address] (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) MDM MODERATE MUST MEET 2 OUT OF 3 ELEMENTS: PROBLEMS, DATA OR RISK ELEMENT 1: PROBLEMS ADDRESSED 1 OR MORE CHRONIC ILLNESS WITH EXACERBATION OR 2 OR MORE STABLE CHRONIC ILLNESSES OR 1 UNDIAGNOSED NEW PROBLEM OR 1 ACUTE ILLNESS W/SYMPTOMS OR 1 ACUTE COMPLICATED INJURY ELEMENT 2: DATA MUST MEET 1 OF 3 CATEGORIES CATEGORY 1: REVIEW OF PRIOR EXTERNAL NOTES, REVIEW OF RESULTS, ORDERING OF EACH TEST, ASSESSMENT REQUIRING INDEPENDENT HISTORIAN OR CATEGORY 2: INDEPENDENT INTERPRETATION OF TESTS BY ANOTHER PHYSICIAN OR SPECIALIST OR CATEGORY 3: DISCUSSION OF MGT OR TEST INTERPRETATION W/EXTERNAL PHYSICIAN OR SPECIALIST ELEMENT 3: RISK RISK OF COMPLICATIONS AND/OR MORBIDITY OR MORTALITY OF PATIENT MANAGEMENT PROVIDER MUST THOROUGHLY DOCUMENT EACH ELEMENT THAT IS COVERED Not available 12/27/2024 15:05:31 04/18/2025 04/18/2025 [id number] [place] [id number] (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) [facility] MODERATE MUST MEET 2 OUT OF 3 ELEMENTS: PROBLEMS, DATA OR RISK ELEMENT 1: PROBLEMS ADDRESSED 1 OR MORE CHRONIC ILLNESS WITH EXACERBATION OR 2 OR MORE STABLE CHRONIC ILLNESSES OR 1 UNDIAGNOSED NEW PROBLEM OR 1 ACUTE ILLNESS W/SYMPTOMS OR 1 ACUTE COMPLICATED INJURY ELEMENT 2: DATA MUST MEET 1 OF 3 CATEGORIES CATEGORY 1: REVIEW OF PRIOR EXTERNAL NOTES, REVIEW OF RESULTS, ORDERING OF EACH TEST, ASSESSMENT REQUIRING INDEPENDENT HISTORIAN OR CATEGORY 2: INDEPENDENT INTERPRETATION OF TESTS BY ANOTHER PHYSICIAN OR SPECIALIST OR CATEGORY 3: DISCUSSION OF MGT OR TEST INTERPRETATION W/EXTERNAL PHYSICIAN OR SPECIALIST ELEMENT 3: RISK RISK OF COMPLICATIONS AND/OR MORBIDITY OR MORTALITY OF PATIENT MANAGEMENT PROVIDER MUST THOROUGHLY DOCUMENT EACH ELEMENT THAT IS COVERED Not available 04/18/2025 09:51:22 Plan of Treatment Reminders Order Date Submit Date Provider Last Modified By Organization Details Last Modified Time Details Appointments FOLLOW UP 15 2024 12:00P M DR REED Not available Not available Not available Lab hemoglobi n A1c, QN, blood 2024 [id number] [facility], [address] [place] [address], [id number], 04/18/2025 10:00:21 microalbu min, urine 2024 [id number] [facility], [address] [place] [address], [id number], 04/18/2025 10:00:20 CMP, serum or plasma 2024 025 [facility], [address] [place] [address], [id number], 04/18/2025 10:00:21 PSA, serum or plasma 2024 025 [facility], [address] [place] [address], [id number], 04/18/2025 10:00:20 CBC 2024 025 [facility], [address] [place] [address], [id number], 04/18/2025 10:00:21 lipid panel, blood 2024 025 [facility], [address] [place] [address], [id number], 04/18/2025 10:00:21 HbA1c (hemoglob in A1c), blood 2024 025 [facility], [address] [place] [address], 7[address], 12/27/2024 15:10:39 lipid panel, blood 2024 025 [facility], [address] [place] [address], [id number], 12/27/2024 15:10:40 microalbu min, urine 2024 025 [facility], [address] [place] [address], [id number], 12/27/2024 15:10:40 CMP, serum or plasma 2024 025 [facility], [address] [place] [address], [id number], 12/27/2024 15:10:40 CBC 2024 025 [facility], [address] [place] [address], [id number], 12/27/2024 15:10:40 PSA, serum or plasma 2024 025 [facility], [address] [place] [address], [id number], 12/27/2024 15:10:40 HbA1c (hemoglob in A1c), blood 2023 024 [facility], [address] [place] [address], [address], 12/27/2024 12:13:02 CMP, serum or plasma 2023 024 [facility], [address] [place] [address], [id number], 09/06/2024 15:41:10 lipid panel, blood 2023 024 [facility], [address] [place] [address], [place], [address], 12/27/2024 12:13:02 microalbu min, urine 2023 024 [facility], [address] [place] [address], [place], [address], 09/06/2024 15:41:10 HbA1c (hemoglob in A1c), blood 2023 024 [facility], [address] [place] [address], [place], [address], 03/22/2024 14:49:02 Referral None recorded. Procedures None recorded. Surgeries None recorded. Imaging None recorded. Medication Orders Mounjaro 10 mg/0.5 mL subcutane ous pen injector 2024 025 [email or web address] [facility] #[id number], [address] [place], [address], 12/27/2024 15:06:37 ciproflox acin 500 mg tablet 2024 025 [facility] #[id number], [address] [place], [address], 12/27/2024 15:06:47 terbinafi ne HCl 250 mg tablet 2024 025 [email or web address] [facility] #[id number], [address] [place], [address], 12/27/2024 15:06:37 Trulicity 0.75 mg/0.5 mL subcutane ous pen injector 2023 024 [email or web address] [facility] #[id number], [address] [place], [address], 05/14/2024 11:15:05 Patient TargetsNo targets recorded. Patient Instructions Encounter Date Encounter Id Patient Instructions Last Modified By Organization Details Last Modified Time 09/06/2024 [id number] learning about asthma Not available 09/06/2024 15:33:18 pulse oximetry* Not available 09/06/2024 15:33:19 12/27/2024 [id number] pulse oximetry* Not available 12/27/2024 15:06:38 04/18/2025 [id number] pulse oximetry* Not available 04/18/2025 09:59:03 Reason for Referral None Reported. Results Created Date Observation Date Name Description Value Unit Range Abnormal Flag Note LastModifiedBy Organization Detail LastModifiedTime 09/06/20 24 09/06/2024 pulse oxime try* Result 97% RA Not Available [facility] [address], [place], [address], 09/01/2024 10:12:27 12/28/19 25 12/27/2024 pulse oxime try* Result 93% Not Available [facility] [address], [place], [address], 12/25/2024 10:24:15 04/18/20 25 04/18/2025 pulse oxime try* Result 98 Not Available [facility] [address] [facility] [address], [place], [address], 02/28/2025 10:04:12 Result Notes None recorded. 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 0920025230 01324 Active 2020 Gemma lindsay [facility] 5 09:12:18 Umbilica l hernia 839605610 Active 2021 Gemma Mckeon null, [facility] 5 09:12:18 Osteomye litis 89084549 Completed 202209/06/2024 Removal Reason: resolved Robinson Reed DO [address] [place] [address], [address], [facility] 4 15:30:53 Weakness of right leg 5565319734 3341857 Active 2022 Gemma Mckeon null, [facility] 5 09:12:18 Diabetic foot ulcer 231380278 Active 2022 Gemma Mckeon null, [facility] 5 09:12:18 Diabetic peripher al neuropat hy 298318001 Active 2022 Gemma lindsay, [facility] 5 09:12:18 COVID-19 290984909 Completed 202309/06/2024 Removal Reason: resolved Robinson Reed DO [address] [place] [address], [address], [facility] 4 15:30:18 Acute sinusiti s 24779679 Completed 202309/06/2024 Removal Reason: resolved Robinson Reed DO [address] [place] [address], [address], [facility] 4 15:30:34 Onychomy cosis of toenails 556650115 Active 2024 Robinson Reed DO [address] [place] [address], [address], [facility] 5 14:57:43 Eczema 30609648 Active 2024 Robinson Reed DO [address] [place] [address], [address], [facility] 5 12:31:11 Problem Notes None recorded. Medical Equipment None Reported. Allergies Allergen ID Allergen Name Allergen Category Reaction Reaction Severity Criticality Documentation Date Start Date Code Code System Note Provider Name and Address Organization Details Recorded Time 8571 apple extract food Not available Not available low 09/06/2024 63784 65 RxNorm Robinson Olivia Reed, DO [address] [place], [address], [facility] 4 15:05:19 No known drug allergies Medications Name Sig Start Date Stop Date Status Note LastModified by Organization Details LastModified Time amoxicillin 500 mg capsule 01/15 completed Not Available Not Available Not Available silver sulfadiazin e 1 % topical cream 06/07 completed Not Available Not Available Not Available prednisone 10 mg tablet 50 mg x 2 days, 40 mg x 2 days, 30 mg x 2 days, 20 mg x 2 days, 10 mg x 2 days 01/15 completed Not Available Not Available Not Available azithromyci n 250 mg tablet TAKE 2 TABLETS BY MOUTH TODAY, THEN TAKE 1 TABLET DAILY FOR 4 DAYS DIRECTED 05/14 completed Not Available Not Available Not Available aspirin 325 mg tablet 06/07 completed Not Available Not Available Not Available ibuprofen 800 mg tablet TAKE 1 TABLET BY MOUTH THREE TIMES A DAY 01/15 completed Not Available Not Available Not Available meloxicam 15 mg tablet 06/07 completed Not Available Not Available Not Available lisinopril 20 mg tablet TAKE 1 TABLET BY MOUTH DAILY. active Not Available Not Available No t Available bacitracin 500 unit/gram topical ointment APPLY TO AFFECTED AREA TWICE A DAY FOR 7 DAYS 03/22 completed Not Available Not Available Not Available ciprofloxac in 500 mg tablet TAKE 1 TABLET BY MOUTH EVERY 12 HOURS FOR 3 DAYS active Not Available Not Available No t Available sulfamethox azole 800 mg-trimetho prim 160 mg tablet 06/07 completed Not Available Not Available Not Available tramadol 50 mg tablet TAKE 1 TABLET EVERY 6 HOURS BY ORAL ROUTE FOR 15 DAYS. 01/15 completed Not Available Not Available Not Available amoxicillin 500 mg tablet TAKE 1 TABLET BY MOUTH EVERY 6 HOURS UNTIL GONE. 01/15 completed Not Available Not Available Not Available terbinafine HCl 250 mg tablet TAKE 1 TABLET BY MOUTH EVERY DAY 2024 active Not Available Not Available Not Avai lable amlodipine 10 mg tablet TAKE 1 TABLET BY MOUTH DAILY. active Not Available Not Available No t Available cephalexin 500 mg capsule TAKE 1 CAPSULE BY MOUTH THREE TIMES A DAY FOR 7 DAYS 09/08 completed Not Available Not Available Not Available betamethaso ne dipropionat e 0.05 % topical cream APPLY SPARINGLY TO AFFECTED AREA EVERY DAY active Not Available Not Available No t Available gabapentin 300 mg capsule 06/07 completed Not Available Not Available Not Available ibuprofen 600 mg tablet TAKE 1 TABLET BY MOUTH EVERY 6 (SIX) HOURS IF NEEDED FOR MILD PAIN (1 3) FOR UP TO 7 DAYS. 05/07 completed Not Available Not Available Not Available albuterol sulfate HFA 90 mcg/actuati on aerosol inhaler INHALE 2 PUFFS EVERY 4 HOURS BY INHALATIO N ROUTE FOR 30 DAYS. active Not Available Not Available No t Available amoxicillin 875 mg-potassiu m clavulanate 125 mg tablet 06/07 completed Not Available Not Available Not Available oxycodone 5 mg tablet 06/07 completed Not Available Not Available Not Available Mapap Arthritis Pain 650 mg tablet,exte nded release TAKE 1 TABLET EVERY 6 HOURS NEEDED FOR PAIN 01/15 completed Not Available Not Available Not Available ciclopirox 0.77 % topical cream 1 APPLICATI ON EXTERNALL Y TWICE A DAY 30 DAYS active Not Available Not Available No t Available cyclobenzap rine 5 mg tablet TAKE 1 TABLET (5 MG TOTAL) BY MOUTH 3 (THREE) TIMES A DAY IF NEEDED (BACK AND NECK PAIN). 08/13 completed Not Available Not Available Not Available Janumet 50 mg-1,000 mg tablet TAKE 1 TABLET BY MOUTH TWICE A DAY 2024 active Not Available Not Available Not Avai lable Jardiance 10 mg tablet TAKE 1 TABLET BY MOUTH EVERY DAY 2024 active Not Available Not Available Not Avai lable Trulicity 1.5 mg/0.5 mL subcutaneou s pen injector INJECT 0.5 ML EVERY WEEK BY SUBCUTANE OUS ROUTE FOR 30 DAYS. 02/10 completed Not Available Not Available Not Available Trulicity 0.75 mg/0.5 mL subcutaneou s pen injector active Not Available Not Available Not Available Meryxela Inhub 250 mcg-50 mcg/dose powder for inhalation INHALE 1 PUFF INTO THE LUNGS TWICE A DAY 2024 active Not Available Not Available Not Mikevickey lable Wixela Inhub 100 mcg-50 mcg/dose powder for inhalation Inhale by inhalatio n route. 05/14 completed Not Available Not Available Not Available FreeStyle Mp 2 Sensor kit USE DIRECTED. active Not Available Not Available No t Available Trulicity 3 mg/0.5 mL subcutaneou s pen injector INJECT 3 MG SUBCUTANE OUSLY ONCE WEEKLY. 09/06 completed Not Available Not Available Not Available Flowflex COVID-19 Antigen Home Test kit USE DIRECTED 05/14 completed Not Available Not Available Not Available Paxlovid 300 mg (150 mg x 2)-100 mg tablets in a dose pack TAKE 3 TABLETS BY MOUTH TWICE A DAY FOR 5 DAYS 05/14 completed Not Available Not Available Not Available Mounjaro 7.5 mg/0.5 mL subcutaneou s pen injector INJECT 7.5 MG EVERY WEEK BY SUBCUTANE OUS ROUTE NEEDED active Not Available Not Available No t Available Mounjaro 5 mg/0.5 mL subcutaneou s pen injector Inject 0.5 mL every week by subcutane ous route for 30 days. 05/14 completed Not Available Not Available Not Available Mounjaro 10 mg/0.5 mL subcutaneou s pen injector INJECT 0.5 ML SUBCUTANE OUSLY WEEKLY active Not Available Not Available No t Available Vitals Date Recorded Body height Body mass index (BMI) Body weight Heart rate Oxygen saturation Oxygen saturation in Arterial blood by Pulse oximetry Systolic And Diastolic Provider Name and Address Organization Details Last Updated DateTime 5 185.42 cm 32.3 kg/m2 096211. 13 g 98 /min 93 % 93 % 134/86 mm[Hg] [facility] 5 14:43:09 Date Recorded Body height Body mass index (BMI) Body weight Heart rate Respiratory rate Oxygen saturation Oxygen saturation in Arterial blood by Pulse oximetry Systolic And Diastolic Provider Name and Address Organization Details Last Updated DateTime 4 185.42 cm 31.7 kg/m2 095520. 17 g 96 /min 16 /min 97 % 97 % 126/76 mm[Hg] Thierry Will [facility] 4 13:59:53 Date Recorded Body height Body mass index (BMI) Body weight Heart rate Oxygen saturation Oxygen saturation in Arterial blood by Pulse oximetry Systolic And Diastolic Provider Name and Address Organization Details Last Updated DateTime 5 185.42 cm 32.3 kg/m2 565690. 13 g 88 /min 98 % 98 % 140/70 mm[Hg] Robinson Reed DO [address] [place], [address], [facility] 5 09:39:16 Date Recorded Body height Body mass index (BMI) Body weight Heart rate Oxygen saturation Oxygen saturation in Arterial blood by Pulse oximetry Systolic And Diastolic Provider Name and Address Organization Details Last Updated DateTime 4 185.42 cm 32.2 kg/m2 376753. 54 g 96 /min 97 % 97 % 138/86 mm[Hg] Robinson Reed DO [address] [place], [address], [facility] 4 15:06:52 Social History Question Answer Notes LastModified by Organizat ion Details LastModified Time Tobacco Smoking Status Never Smoker Not Available [facility] 08/08/2020 03:36:24 What Was The Date Of Your Most Recent Tobacco Screening? 04/18/2025 Information not available 04/18/2025 Sex: Unknown Functional Status Question Answer Note LastModified by Organization D etails LastModified Time Do you or have you ever used any other forms of tobacco or nicotine? No jvanasse Information not available 02/25/2022 Mental Status None recorded. Family History Nothing Reported. Medical History No medical history recorded. Immunizations Vaccine Type Date Status Note Provider Nam e and Address Organization Details Recorded Time COVID-19, mRNA, LNP-S, PF, 100 mcg/0.5mL dose or 50 mcg/0.25mL dose 1 completed Robinson Reed DO [address] [place], [address], [facility] 05/07/2021 14:38:36 COVID-19, mRNA, LNP-S, PF, 100 mcg/0.5mL dose or 50 mcg/0.25mL dose 1 completed Robinson Reed DO [address] [place] [address], [address], [facility] 05/07/2021 14:38:39 COVID-19, mRNA, LNP-S, PF, 100 mcg/0.5mL dose or 50 mcg/0.25mL dose 2 completed Francheska lindsay [facility] 12/03/2021 10:23:48 Influenza, split virus, quadrivalent, preservative 1 completed Francheska lindsay [facility] 02/25/2022 09:35:33 zoster, unspecified formulation 4 completed Rory lindsay [facility] 07/30/2024 11:15:22 SARS-COV-2 (COVID-19) vaccine, UNSPECIFIED 4 completed Rory lindsay [facility] 08/23/2024 08:04:10 Pneumococcal conjugate PCV 13 0 completed Not Available [facility] 03/23/2021 17:29:30 Past Encounters Encounter ID Performer Location Encounter Start Date Encounter Closed Date Diagnosis/Indication Diagnosis SNOMED-CT Code Diagnosis ICD10 Code Diagnosis IMO Codes Diagnosis Note [id number] Robinson Reed DO [facility] [address] [facility],[place] [address] 05/06/2018 15:56:53 05/07/2018 12:14:24 Type 2 diabetes mellitus 78092373 E11.65 uncontroll ed on will try trulicity 0.75mg injectable q weekly and recheck lab in 8 weeks samples given Essential hypertension 80997609 I10 stable on current meds Asthma 010392765 J45.90 9 advair is quite helpful and we will maintain this for now [id number] Robinson Reed DO [facility] [address] [facility],[place] [address] 07/12/2019 16:20:38 07/13/2019 08:58:19 Essential hypertension 59649502 I10 stable on current meds Asthma 140273699 J45.90 9 advair is quite helpful and we will maintain this for now Type 2 melissa betes mellitus 51582154 E11.65 uncontroll ed even on janumet 50/100 will retry trulicity 0.75mg injectable q weekly and recheck lab in 8 weeks Vasectomy requested 1839 29498 Z30.2 [id number] Robinson Reed [facility] [address] [facility] [address],[place] [address] 10/08/2019 15:09:18 10/08/2019 15:34:29 Asthma 945032143 J45.909 advair is quite helpful and we will maintain this for now Type 2 melissa betes mellitus 81835759 E11.65 uncontroll ed even on janumet 50/100 will retry trulicity 0.75 mg injectable q weekly and recheck lab in 8 weeks A1C is down to 7.8 from 9.8 Will continue to work on diet/exerc ise and lose weight Essential hypertension 39994028 I10 stable on current meds [id number] Robinson Reed [facility] [address],[place] [address] 01/05/2020 13:43:23 01/07/2020 14:49:23 Essential hypertension 49692533 I10 stable on current meds Type 2 melissa betes mellitus 39635196 E11.65 Asthma 592199001 J45.90 9 advair 250 is quite helpful and we will maintain this for now during allergy Diabetic foot ulcer 3710 53037 E13.621 I am quite worried about this and wonder if he has gone to develop a osteomyeli tis must presume this is so until proven otherwise will need xray of toe as welll as MRI will also refer him to ID and to ortho surg for management if xray positive will need tissue for culture [id number] Robinson Reed [facility] [address] [address],[place] [address] 06/07/2020 11:03:58 06/07/2020 11:59:08 Asthma 065235889 J45.909 stable Lumbago with sciatica 20 4387170 M54.41 will try course of prednisone Essential hypertension 25834987 I10 BP is fine will continue to monitor Type 2 melissa betes mellitus 70768766 E11.9 talked to patient about sugar level on pred taper [id number] Robinson Reed [facility] [address] [facility],[place] [address] 07/28/2020 08:50:40 07/28/2020 16:19:52 Lumbago with sciatica 291317291 M54.41 pain is all on right side side of his foot wound Essential hypertension 66850574 I10 stable on current meds Type 2 melissa betes mellitus 90813516 E11.65 a1c last done 7.4 in february prior to foot surgery as [facility] will need to get done lab ordered [id number] Robinson Reed [facility] [address] [facility],[place] [address] 01/15/2021 09:07:50 01/15/2021 16:02:01 Herniation of lumbar intervertebral disc with sciatica 4580066449 41121 M51.16 await neurosurg eval for L5 nerve entrapment will provide with tramadol Type 2 melissa betes mellitus 52584706 E11.65 a1c last done is up to 7.7 from 7.5 we will increase the trulicity to 3mg Essential hypertension [id number] I10 stable on current meds relates has been on usu meds and has been doing ok at home [id number] Robinson Reed [facility] Internal Medicine [address] [facility] [address],[place] [facility] [place] [address] 05/07/2021 14:29:57 05/07/2021 14:56:05 Asthma [id number] J45.909 advair 250 is quite helpful and we will maintain this for now during allergy Essential hypertension 68613260 I10 stable on current meds relates has been on usu meds and has been doing ok at home Type 2 melissa betes mellitus 88427480 E11.65 a1c last done is up to 7.7 from 7.5 we will increase the trulicity to 3mg Diabetic foot ulcer 3710 90707 E13.621 L97.409 I am still quite worried about this must presume this is so until proven otherwise he is back at wound care this recurrence is only a very small amount compared to the initial presentati on will also refer him to ID and to ortho surg for management if needed [id number] Robinson Reed, [facility] Internal Medicine [address] [facility],[place] [address] 08/13/2021 11:04:36 08/14/2021 13:59:57 Asthma [id number] J45.909 advair 100 is quite helpful and we will maintain this for now during allergy Type 2 melissa betes mellitus 17215634 E11.65 a1c last done is up to 7.7 from 7.5 / 7.7/ tolerates the trulicity to 3mgneeds to get eye examined !!!!!! Essential hypertension 28042904 I10 stable on current meds relates has been on usu meds and has been doing ok at home Weakness of right leg 15 [id number] 0645189 G83.11 has 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 now manesfesti ng with signif leg weakness Osteomyelitis 71151276 M 86.179 no issuesa at this timehad blisters on great toe but have since cleared with wound care [id number] Robinson Reed, [facility] Internal Medicine [address] [facility],[place] [address] 12/03/2021 10:18:07 12/04/2021 13:48:22 Type 2 diabetes mellitus 63410094 E11.65 a1c last done is up to 7.7 from 7.5 / 7.7/ tolerates the trulicity to 3mgneeds to get eye examined !!!!!! 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 now manesfesti ng with signif leg weakness Diabetic foot ulcer 3710 69369 L97.409 has done well and no further ulcer is seen further management if needed [id number] Robinson Reed DO [facility] Internal Medicine [address] [facility] [address],[place] [facility] [place] [address] 02/25/2022 11:01:20 02/25/2022 11:34:31 Asthma [id number] J45.909 advair 100 is quite helpful and we will maintain this for now during allergy Type 2 melissa betes mellitus 75099090 E11.65 a1c last done is up to 9.2 from 7.7 from 7.5 / 7.7/ tolerates the trulicity to 3mgneeds to get eye examined !!!!!! we will start him on freestyle mp and monitor in 1 month Essential hypertension 31945136 I10 stable on current meds relates has been on usu meds and has been doing ok at home Active or passive immunization 024657171 Z23 patient advised of vaccines due (tdap & pneu 23) Umbilical hernia [id number] 07 K42.9 will need a referral to a gen surgeon [id number] Robinson Reed DO [facility] Internal Medicine [address] [facility],[place] [address] 03/26/2022 08:19:20 03/29/2022 08:48:21 Essential hypertension 14495926 I10 stable on current meds relates has been on usu meds and has been doing ok at home Type 2 melissa betes mellitus 96449027 E11.65 a1c last done is up to 9.2 from 7.7 from 7.5 / 7.7/ tolerates the trulicity to 3mgneeds to get eye examined !!!!!! we will start him on freestyle mp and monitor in 1 month [id number] Robinson Reed DO [facility] Internal Medicine [address] [facility] [address],[place] [address] 02/10/2023 11:11:51 02/10/2023 12:02:11 Essential hypertension 25949439 I10 stable on current meds relates has been on usu meds and has been doing ok at home Asthma 889272744 J45.90 9 advair 100 is quite helpful and we will maintain this for now during allergy season and we willuse the 250 during the allergy season now has not used albuterol until allergy season Type 2 melissa betes mellitus 95451771 E11.65 here freddy mary hasnt been seen in almost a year not getting a1c every 3 mostates eating a poor diet also has been not monitoring his sugars too much despite having gotten him the freestyle librenot very active with his own diabetes [facility] eye exams doneseen by software project engineer several weeks ago does have some tingling neuropathy sx bilat Osteomyelitis 64594868 M 86.179 no issues at this timehad blisters on great toe but have since cleared with wound care Weakness of right leg 15 [id number] 7224708 G83.11 has 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 now jennifer franco with signif leg weakness Diabetic foot ulcer 3710 35774 L97.409 has done well and no further ulcer is seen further management if needed [id number] DO Jan Ordoñez Internal Medicine [address] [facility],[place] [address] 06/02/2023 10:39:34 06/02/2023 16:01:52 Asthma [id number] J45.909 advair 100 is quite helpful and we will maintain this for now during allergy season and we willuse the 250 during the allergy season now has not used albuterol until allergy season Type 2 melissa betes mellitus 24595905 E11.65 has not lost wgt but he is enrolled in a wgt loss clinicdiet is not always the best Prior :here freddy mary hasnt been seen in almost a year not getting a1c every 3 mostates eating a poor diet also has been not monitoring his sugars too much despite having gotten him the freestyle librenot very active with his own diabetes [facility] eye exams doneseen by software project engineer several weeks ago does have some tingling neuropathy sx bilat Essential hypertension 64614654 I10 stable on current meds relates has been on usu meds and has been doing ok at home Diabetic p eripheral neuropathy 912453562 E11.40 cont with podiatry on a more frequent level [id number] DO Jan Ordoñez Internal Medicine [address] [facility],Priya Jerez [place] [address] 09/08/2023 10:03:47 09/08/2023 10:51:13 Type 2 diabetes mellitus 49830148 E11.65 has lost 6 lbs but his a1c is 8.6he was 8.6 las time relates that he has not gotten an eye exam diet is not always the best Prior :here freddy mary hasnt been seen in almost a year not getting a1c every 3 mostates eating a poor diet also has been not monitoring his sugars too much despite having gotten him the freestyle librenot very active with his own diabetes [facility] eye exams doneseen by software project engineer several weeks ago does have some tingling neuropathy sx bilat Essential hypertension 05341606 I10 stable on current meds relates has been on usu meds and has been doing ok at home [id number] Robinson Reed DO [facility] Internal Medicine [address] [facility], z[place] [address] 11/03/2023 08:22:14 11/03/2023 14:08:43 Essential hypertension 94965567 I10 stable on current meds relates has been on usu meds and has been doing ok at home Type 2 melissa betes mellitus 60096443 E11.65 he continues to do well and lose weight 7.7 a1che was 8.6 last time relates that he has not gotten an eye exam diet is not always the best Prior :here freddy mary hasnt been seen in almost a year not getting a1c every 3 mostates eating a poor diet also has been not monitoring his sugars too much despite having gotten him the freestyle librenot very active with his own diabetes caren[facility] eye exams doneseen by software project engineer several weeks ago does have some tingling neuropathy sx bilat [id number] Robinson Reed [facility] Internal Medicine [address] [facility], [place] [address] 03/22/2024 13:51:23 03/22/2024 14:48:19 Type 2 diabetes mellitus 88750016 E11.65 still cannnot get trulicity 3 mg nor 1.5 mg but 0,5 is present we will try to get him this he continues to do well and lose weight 7.7 a1che was 8.6 last time relates that he has not gotten an eye exam diet is not always the best Prior :here freddy mary hasnt been seen in almost a year not getting a1c every 3 mostates eating a poor diet also has been not monitoring his sugars too much despite having gotten him the freestyle librenot very active with his own diabetes caren[facility] eye exams doneseen by software project engineer several weeks ago does have some tingling neuropathy sx bilat Essential hypertension 29882053 I10 stable on current meds relates has been on usu meds and has been doing ok at home [id number] Robinson Reed DO [facility] Internal Medicine [address] [facility] [address],[place] [address] 09/06/2024 15:00:49 09/06/2024 15:37:59 Asthma 400472035 J45.909 advair 100 is quite helpful and we will maintain this for now during allergy season and we will use the 250 during the allergy season now has not used albuterol until allergy season Essential hypertension 77340327 I10 stable on current meds relates has been on usu meds and has been doing ok at home Type 2 melissa betes mellitus 59647463 E11.9 trulicity 3 mgwe will try to get him thisnow is back up to 8 he continues to do well and lose weight 7.7 a1che was 8.6 last time relates that he has not gotten an eye exam diet is not always the best Prior :here freddy mary hasnt been seen in almost a year not getting a1c every 3 mostates eating a poor diet also has been not monitoring his sugars too much despite having gotten him the freestyle librenot very active with his own diabetes caren[facility] eye exams doneseen by software project engineer several weeks ago does have some tingling neuropathy sx bilat [id number] Robinson Reed DO [facility] Internal Medicine [address] [facility] [address],[place] [address] 12/27/2024 14:31:21 12/27/2024 15:08:32 Asthma 599106900 J45.909 advair 100 is quite helpful and we will maintain this for now during allergy season and we will use the 250 during the allergy season now has not used albuterol until allergy season Essential hypertension 90630226 I10 stable on current meds relates has been on usu meds and has been doing ok at home Type 2 melissa betes mellitus 21971452 E11.9 trulicity 3 mgwe will try to get him thisnow is back up to 8 he continues to do well and lose weight 7.7 a1che was 8.6 last time relates that he has not gotten an eye exam diet is not always the best Prior :here freddy mary hasnt been seen in almost a year not getting a1c every 3 mostates eating a poor diet also has been not monitoring his sugars too much despite having gotten him the freestyle librenot very active with his own diabetes careno eye exams doneseen by software project engineer several weeks ago does have some tingling neuropathy sx bilat Depression screening 171 480804 Z13.31 neg Onychomyco sis of toenails 850248830 B35.1 Traveler's diarrhea 1184 0006 A04.1 [id number] Robinson Reed DO [facility] Internal Medicine [address],[place] [address] 04/18/2025 09:32:19 04/18/2025 13:33:00 Asthma 013726816 J45.909 advair 100 is quite helpful and we will maintain this for now during allergy season and we will use the 250 during the allergy season now has not used albuterol until allergy season Essential hypertension 92756736 I10 stable on current meds relates has been on usu meds and has been doing ok at home recc Type 2 melissa betes mellitus 14529483 E11.9 on mounjaro and still doing well advised on cholestero l med with diabetes refuses to take he continues to do well and lose weight 7.7 a1che was 8.6 last time relates that he has not gotten an eye exam diet is not always the best Prior :here freddy mary hasnt been seen in almost a year not getting a1c every 3 mostates eating a poor diet also has been not monitoring his sugars too much despite having gotten him the freestyle librenot very active with his own diabetes careno eye exams doneseen by software project engineer several weeks ago does have some tingling neuropathy sx bilat Depression screening 171 881090 Z13.31 neg Health Concerns Section Related Observation LastModified by Organization Detai ls LastModified Time None Recorded Concern Status LastModified by Organization Details LastModified Time None Recorded Advance Directives Directive None Recorded Payers Insurance Date Sequence Insurance Name Policy Number Policy Santillan Covered Member ID Santillan Member ID Guarantor Name 07/12/2025 1 [facility] [employer] Tj Mead [id number] Tj Mead Notes Date Note Type Note Provider Name and Address Organization Details Recorded Time 4 text/htm l ROS as noted in the HPI patient is evaluated via tele/video assessment per patient consentduring current pandemicdoing ok overall has a head cold covid negand is feeling betterhas changed his diet and dropped his a1c to 7.7he has also dropped some weight Robinson Reed DO [address] [place], [address], [facility] Internal Medicine 11/03/2023 12:05:04 4 text/htm l ROS as noted in the HPI here for rechk and is doing okno major issues has been off trulicity for 3 weeks due to availability problemshas a1c done today Robinson eRed DO [address] [place], [address], [facility] Internal Medicine 03/22/2024 14:44:58 4 text/htm l Care Management - HypertensionReported by PatientHPIFor self care, patient reportsnot under emotional stress. For severity, patient reportssymptoms are improvinganddoes not interfere with daily activities. For associated symptoms, patient reportsno dizziness,no lightheadedness,no chest pain,no shortness of breath,no palpitations,no edema,no calf muscle cramps,no blurred vision,no confusion,no headaches, andno fatigue. Care Management - DiabetesReported by PatientHPIFor self care, patient reportsseeing eye doctor yearly for dilated eye exam,checking feet regularly,normal range of home blood sugars (in the low 100s), andno side effects from medications. For associated symptoms, patient reportssymptoms are usually well controlled,no fatigue,no dizziness,no excessive sweating,no headaches,no confusion,no increased thirst,no increased appetite,no increased urination,no blurred vision,no numbness of feet, andno calluses on feet.ROS as noted in the HPI here for rechk and is doing ok Robinson LoganBatsheva Reed DO [address] [place], [address], [facility] Internal Medicine 09/06/2024 15:35:57 5 text/htm l Care Management - HypertensionReported by PatientIFor self care, patient reportsnot under emotional stress. For severity, patient reportssymptoms are improvinganddoes not interfere with daily activities. For associated symptoms, patient reportsno dizziness,no lightheadedness,no chest pain,no shortness of breath,no palpitations,no edema,no calf muscle cramps,no blurred vision,no confusion,no headaches, andno fatigue. Care Management - DiabetesReported by PatientIFor self care, patient reportsseeing eye doctor yearly for dilated eye exam,checking feet regularly,normal range of home blood sugars (in the low 100s), andno side effects from medications. For associated symptoms, patient reportssymptoms are usually well controlled,no fatigue,no dizziness,no excessive sweating,no headaches,no confusion,no increased thirst,no increased appetite,no increased urination,no blurred vision,no numbness of feet, andno calluses on feet. Care Management - AsthmaReported by PatientCEDAR CITY HOSPITALor severity, patient reportsimproving,does not interfere with daily activities,does not disturb sleep, anddoes not cause nighttime awakening. For associated symptoms, patient reportsno fever,no fatigue,no irritability,no cough,normal appetite, andno change in productivity.ROS as noted in the HPI here for rechk relates had not gotten last a1c and had been changingwas 238 undressed this am Robinson Reed DO [address] [place], [address], [facility] Internal Medicine 12/27/2024 15:06:57 5 text/htm l Care Management - HypertensionReported by [facility]Law[facility] self care, patient reportsnot under emotional stress. For severity, patient reportssymptoms are improvinganddoes not interfere with daily activities. For associated symptoms, patient reportsno dizziness,no lightheadedness,no chest pain,no shortness of breath,no palpitations,no edema,no calf muscle cramps,no blurred vision,no confusion,no headaches, andno fatigue. Care Management - DiabetesReported by PatientHPIFor self care, patient reportsseeing eye doctor yearly for dilated eye exam,checking feet regularly,normal range of home blood sugars (in the low 100s), andno side effects from medications. For associated symptoms, patient reportssymptoms are usually well controlled,no fatigue,no dizziness,no excessive sweating,no headaches,no confusion,no increased thirst,no increased appetite,no increased urination,no blurred vision,no numbness of feet, andno calluses on feet. Care Management - AsthmaReported by PatientHPIFor severity, patient reportsimproving,does not interfere with daily activities,does not disturb sleep, anddoes not cause nighttime awakening. For associated symptoms, patient reportsno fever,no fatigue,no irritability,no cough,normal appetite, andno change in productivity.ROS as noted in the HPI here for rechk and doing well overallrelates that he is doing better lab was not openrelates that the knee pain has been getting worse more stiff and sore Robinson Reed, DO [address] [facility], [place], [address], [facility] Internal Medicine 04/18/2025 10:01:50
--- OUTSIDE RECORDS SUMMARY | 2025-07-27 11:32 | XMS_ITS | Patient Health Record ---
Author Organization [facility] Address [address] [place] [address] Care Team Providers Care Mask Inspector Name Role Phone Robinson Hayes MD Primary Care Provider Gurvinder Swenson Unavailable [phone] Allergies No Known Allergies Results Component Value Reference Range Notes HEMOGLOBIN A1C (GLYCOHEMOGLO BIN) Reviewed date:12/13/2024 10:17:05 AM Interpretation: Performing Lab: Notes/Report: HEMOGLOBIN A1C % (HH) 7.3 HEMOGLOBIN A1C (GLYCOHEMOGLO BIN) Reviewed date:06/09/2025 12:13:01 PM Interpretation: Performing Lab: Notes/Report: HEMOGLOBIN A1C % (HH) 7.3 HEMOGLOBIN A1C (GLYCOHEMOGLO BIN) Reviewed date:06/13/2025 08:47:06 AM Interpretation: Performing Lab: Notes/Report: HEMOGLOBIN A1C % (HH) 7.8 Reason For Referral No Information Medications Medication SIG (Take, Route, Frequency, Duration) Notes Start Date End Date Status Mounjaro 7.5 MG/0.5ML as directed Subcutaneous Active Trulicity 1.5 MG/0.5ML as directed Subcutaneous Not-Taking Advair Diskus Active Iodosorb 0.9 % as directed External ly Apply to ulceration daily with dry sterile dressing; Duration: 30 days Not-Taking Janumet 50-1000 MG 1 tablet with meals Orally Twice a day; Duration: 30 day(s) Not-Taking Terbinafine Active Lisinopril 20 MG 1 tablet Orally Once a day; Duration: 30 day(s) Not-Torrey ing amLODIPine Besylate 10 MG 1 tablet Orally Once a day; Duration: 30 day(s) Not-Torrey ing Ciclopirox Olamine 0.77 % 1 application Externally Twice a day; Duration: 30 days Active Trulicity 1.5 MG/0.5ML as directed Subcutaneous Not-Taking Janumet 50-1000 MG 1 tablet with meals Orally Twice a day; Duration: 30 day(s) Active Extra Depth Orthopedic Shoes (1 Pair) with Customized Heat Molded Multidensity Innersoles (3 Pair) as directed Dx: NIDDM/Polyneuropathy (E11.42), Hammertoe Foot Deformity (M20.41,M20.42), Preulcerative Skin Lesion(s) (L85.1 12/22/2023 Active amLODIPine Besylate 10 MG 1 tablet Orally Once a day; Duration: 30 day(s) Active Lisinopril 20 MG 1 tablet Orally Once a day; Duration: 30 day(s) Active Immunizations Vaccine Route Administration Date Status Comme nts Influenza Unknown 06/06/2023 Administered Influenza Unknown 07/07/2024 Administered COVID-19 Moderna Vaccine Unknown 10/13/2020 Administere d COVID-19 Moderna Vaccine Unknown 11/10/2020 Administere d Social History Tobacco Use: Social History Observation Description Date Details (start date - stop date) Never Smoker NA - NA Tobacco use other than smoking: Question Answer Notes Are you an other tobacco user? No Tobacco Control (Standard) Question Answer Notes Tobacco use: Nonsmoker Additional Findings: Tobacco non-user Current no nsmoker AUDIT-C (Standard) Question Answer Notes Did you have a drink contain ing alcohol in the past year? Yes How often did you have a dri nk containing alcohol in the past year? Monthly or less (1 point) How many drinks did you have on a typical day when you were drinking in the past year? 1 or 2 drinks (0 point) How often did you have six o r more drinks on one occasion in the past year? 2 to 4 times a month (2 points) Points 3 Interpretation Negative Problems Problem Type SNOMED Code ICD Code Onset Dates Problem Status W/U Status Risk Notes Problem Acquired hammer toe of right foot (3655429820177111 ) Other hammer toe(s) (acquired), right foot (M20.41) Active confirmed Response to treatment, Improvemen t Problem Acquired hammer toe of left foot (7239180507137922 ) Other hammer toe(s) (acquired), left foot (M20.42) Active confirmed Response to treatment, Improvemen t Problem Polyneuropathy due to type 2 diabetes mellitus (650021381) Type 2 diabetes mellitus with diabetic polyneuropathy (E11.42) Active confirmed Vital Signs Blood pressure diastolic 65 mm Hg 06/13/2025 Height 6ft 1in in 06/13/2025 Blood pressure systolic 128 mm Hg 06/13/2025 Weight 243 lbs 06/13/2025 BMI 32.06 kg/m2 06/13/2025 Procedures Procedure Date Ordered Date Performed Result Body Sit e 04650-TXGXNDO NAIL, 1-5 12/13/2024 N/A 72802-WDJS SKIN LESIONS, OVER 4 12/13/2024 N/A H5979-USKMAXZR DYSTROPHIC NAILS ANY # 12/13/2024 N/A 68652-MZPBHRV NAIL, 1-5 06/13/2025 N/A 15861-BBZE SKIN LESIONS, OVER 4 06/13/2025 N/A M2912-VONYHNOW DYSTROPHIC NAILS ANY # 06/13/2025 N/A Encounters Encounter Location Date Provider Diagnosis [facility] [address] 12/13/2024 Gurvinder Pepito Type 2 diabetes mellitus with diabetic polyneuropathy E11.42 ; Tinea unguium B35.1 ; Other hammer toe(s) (acquired), right foot M20.41 and Other hammer toe(s) (acquired), left foot M20.[address] [address] 06/13/2025 Gurvinder Beyer Type 2 diabetes mellitus with diabetic polyneuropathy E11.42 ; Tinea unguium B35.1 and Subungual hematoma of left foot, initial encounter S90.222A Assessments Encounter Date Diagnosis (ICD Code) Assessment Notes Treatment Notes Treatment Clinical Notes Section Notes 12/13/2024 Tinea unguium (ICD-10 - B35.1) 12/13/2024 Type 2 diabetes mellitus with diabetic polyneuropathy (ICD-10 - E11.42) 06/13/2025 Tinea unguium (ICD-10 - B35.1) 06/13/2025 Type 2 diabetes mellitus with diabetic polyneuropathy (ICD-10 - E11.42) 12/13/2024 Other hammer toe(s) (acquired), right foot (ICD-10 - M20.41) Patient Educated with: DIABETIC FOOT CARE INSTRUCTIONS. pdf (DIABETIC FOOT CARE INSTRUCTIONS. pdf) 12/13/2024 Other hammer toe(s) (acquired), left foot (ICD-10 - M20.42) 06/13/2025 Subungual hematoma of left foot, initial encounter (ICD-10 - S90.222A) Plan Of Treatment Pending Test Test Name Order Date 13360-YAIXPZR NAIL, 10-1007/03/2022 32079-YKWMDKT NAIL, 10-1001/21/2023 90832-TWAOBVE NAIL, 10-1006/16/2023 63778-TJRMTRY NAIL, 10-1012/22/2023 22797-SCURVWA NAIL, 10-1006/14/2024 49071-ZMNLJXE NAIL, 10-1012/13/2024 97100-INYFSNH NAIL, 10-1006/13/2025 45394- Debride <25 sq cm 02/13/2024 22149-PBNTYWK SKIN/TISSUE 01/17/2021 93025-DYPVOBE SKIN/TISSUE 01/31/2021 28984-OVGF SKIN LESIONS, OVER 4 12/22/19 24 02767-EDWJ SKIN LESIONS, OVER 4 06/16/20 23 10978-YKTN SKIN LESIONS, OVER 4 06/13/20 25 67324-SZRH SKIN LESIONS, OVER 4 12/14/19 25 06992-NBBY SKIN LESIONS, OVER 4 06/14/20 24 25495-ELZY SKIN LESIONS, 2 TO 4 01/22/20 23 31791-Znwf. Subungual Hematoma 2 Z7086-QGZHFMQZ DYSTROPHIC NAILS ANY # B9969-MERVXBFG DYSTROPHIC NAILS ANY # K5992-EKFWQPKJ DYSTROPHIC NAILS ANY # M2845-LBKPVGSC DYSTROPHIC NAILS ANY # E3400-VYNVORVH DYSTROPHIC NAILS ANY # L8862-YLFNKKTH DYSTROPHIC NAILS ANY # Next Appt Details Provider Name:Gurvinder Beyer , 12/12/2025 08:30:00 AM, [address] [facility], [address], [place], [address], Insurance Providers Payer Name Payer Address Payer Phone Subscriber Number Group Number Insured Name Patient Relationship to Insured Coverage Start Date Coverage End Date [facility] [address] [place] [address] [phone] [id number] Tj Mead Self - patient is the insured Medical (General) History Medical History History ICD Code asthma Back,Hip,and Knee pain type II diabetes High blood pressure Numbness Sciatica Chicken pox Surgical History Surgery Date(Month/Year) toe surgery 02/2020
--- OUTSIDE RECORDS SUMMARY | 2025-07-27 11:32 | XMS_ITS | Clinical Summary ---
Author Organization 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 Not on rachel e 01/31/2023 Are you concerned about learning? Not on file 01/31/2023 No 01/31/2023 No 01/31/2023 Digital Access Answer Date Recorded No 03/01/2023 No 03/01/2023 No 03/01/2023 Reliable internet access at home? Not on file 03/01/2023 Device with a working camera? Not on file Sex and Gender Information Value Date Recorded Sex Assigned at Not on file Legal Sex Male 9:34 PM EDT Gender Identity Not on file Sexual Orientation Not on file Last Filed Vital Signs Vital Sign Reading Time Taken Comments Blood Pressure 124/82 02/04/2011 4:09 AM EDT Pulse 74 02/04/2011 4:09 AM EDT Temperature - - Respiratory Rate - - Oxygen Saturation - - Inhaled Oxygen Concentration - - Weight 108.9 kg (240 lb) 10/26/2020 4:35 PM EST Height 185.4 cm (6' 1 ) 10/26/2020 4:35 PM EST Body Mass Index 31.66 10/26/2020 4:35 PM EST Plan of Treatment Health Maintenance Due Date Last Done Comments Adult Td,Tdap Booster 1970 LIPID PANEL 1970 DEPRESSION SCREENING 1982 SMOKING Hx and SMOKELESS TOBACCO SCREENING 1983 HEPATITIS C SCREENING 1988 HIV ONE-TIME SCREENING (18-6 5 YEARS) 1988 COLOGUARD 2015 COLONOSCOPY 2015 COLORECTAL CANCER SCREENING 2015 FIT TEST 2015 FOBT 2015 SIGMOIDOSCOPY 2015 VIRTUAL COLONOSCOPY 2015 ZOSTER VACCINES (1 of 2) 2020 PNEUMOCOCCAL VACCINES (50+ years) (2 of 2 - PPSV23) 09/11/2021 09/11/2020 INFLUENZA VACCINE (#1) 2025 , 06/12/2022, 08/22/2021 COVID-19 VACCINE (3 - 2024-2 6 season) 2025 06/28/2023, 06/12/2022 RSV VACCINE (1 - 1-dose 75+ series) 2045 HEPATITIS A VACCINES Aged Out No long er eligible based on patient's age to complete this topic HIB VACCINES Aged Out No longer eligi ble based on patient's age to complete this topic MENINGOCOCCAL VACCINES (ACWY) Aged Out No longer eligible based on patient's age to complete this topic MENINGOCOCCAL VACCINES (B) Aged Out N o longer eligible based on patient's age to complete this topic Medical Devices Not on file Insurance [employer] [facility] [employer] [facility] [employer] [facility] [place] [employer] Care Teams 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 It is not the complete legal health record.[facility]
[2025-07-27 13:00] LABS: MANUAL DIFF FLAG NO
[2025-07-27 13:17] LABS: Hematocrit 48.5 % (42.0-52.0); Hemoglobin 15.8 g/dl (14.0-18.0); Imm Gran Abs Auto 0.03 X10*3/uL (0.00-0.03); Imm Gran Pct Auto 0.4 % (0.0-0.4); Lymphocytes Absolute Auto 2.0 X10*3/uL (1.2-4.9); Mean Corpuscular HGB Conc 32.6 g/dl (31.0-36.0); Mean Corpuscular Hemoglobin 27.7 pg (27.0-33.0); Mean Corpuscular Volume 85.1 fL (80.0-98.0); NRBC Abs Auto 0.000 X10*3/uL (0.0-0.012); NRBC Pct Auto 0.0 /100WBC (0.0-0.2); Platelet Count 326 X10*3/uL (160-400); Red Blood Count 5.70 X10*6/uL (4.60-5.80); White Blood Count 7.8 X10*3/uL (4.8-10.8)
[2025-07-27 13:23] LABS: Hemoglobin A1C 260.8760 umol/L; Total Hemoglobin (HGBA1C) 4064.2168 umol/L
[2025-07-27 13:44] LABS: Alanine Aminotransferase 28 U/L (0-40); Albumin Level 4.7 g/dL (3.5-5.0); Alkaline Phosphatase 87 U/L (39-117); Anion Gap 9 (12-20); Aspartate Amino Transferase 25 U/L (5-37); Blood Urea Nitrogen 17 mg/dL (9-16); Calcium 9.5 mg/dL (8.4-10.2); Carbon Dioxide 30 mmol/L (22-29); Chloride 102 mmol/L (96-108); Cholesterol 182 mg/dL (<200); Estimated Glomerular Filt Rate > 60; HDL Cholesterol 40 mg/dL (>40); Potassium 4.3 mmol/L (3.3-5.1); Sodium 137 mmol/L (135-145); Total Protein 7.3 g/dL (6.5-8.0); Triglycerides 190 mg/dL (<150)
[2025-07-27 14:03] LABS: Prostate Specific Antigen 0.31 ng/mL (<0.05-4.0)
== END 2025-07-27 09:47 | disposition home or self-care (01) ==
LOC: HO.MANLDS 09:46
PROVIDERS: Visit Provider Internal Medicine
DX: Z12.5 Encounter for screening for malignant neoplasm of prostate (principal); I10 Essential (primary) hypertension; E11.9 Type 2 diabetes mellitus without complications
CPT/HCPCS: 36415; 80053; 80061; 82043; 82570; 83036; 84153; 85025